=== PATIENT | male | born 1995 | race Two or more races ===

== ENCOUNTER 2020-10-04 10:06 | Emergency (ER) | payer OTHER ==
[~2020-10-04] VITALS: Ht 172.7 cm; Wt 93.0 kg
[2020-10-04 11:23] VITALS: BP 109/64
--- NOTE | 2020-10-04 11:26 | NUR ---
ED Nurse Note:pt. came with laceration at work on right thumb, no bleeding
[2020-10-04] MEDS: Lidocaine 1% Plain 30 ml INJ ONE ×2 (11:56→11:58)
[2020-10-04] MEDS ORDERED: Tetanus/Diptheria/Pertussis IM ONE (12:15)
--- NOTE | 2020-10-04 12:16 | Emergency Room Report ---
History of Present Illness General Chief Complaint: Laceration Source: Patient Present Illness HPI 24-year-old male presents to the emergency department complaining of 3 out of 10 severity pain, tenderness and open wound to the distal aspect of the right thumb which occurred approximately 1 to 2 hours prior to arrival. Patient reports that he was at work and he was using a razor blade to cut a piece of plastic off of a bumper when he accidentally cut his own finger as well. Patient reports bleeding initially. Patient states he cleaned it in the sink at work and it made him lightheaded. Patient states he is not up-to-date with tetanus. He reports he did not eat breakfast this morning. Denies chest pain or palpitations. He denies hitting his head. Patient denies taking blood thinning medications. He reports he is [right]-hand dominant. Allergies: Coded Allergies: No Known Allergies (Unverified , 10/04/20) COVID-19 Screening Contact w/high risk pt: No Experienced COVID-19 symptoms?: No COVID-19 Testing performed TIMBER INSPECTOR: No Patient History Past Medical History: see triage record Past Surgical History: none Pertinent Family History: none Reviewed Nursing Documentation: PMH: Agreed; PSxH: Agreed Nursing Documentation-PMH Past Medical History: No Stated History Review of Systems All Other Systems: negative except mentioned in HPI Physical Exam Vital Signs Date Time Temp Pulse Resp B/P (MAP) Pulse Ox O2 Delivery O2 Flow Rate FiO2 10/04/20 10:58 98.2 56 16 109/64 (79) 98 Room Air Sp02 EP Interpretation: reviewed, normal General Appearance: no apparent distress, alert, GCS 15, non-toxic Head: normocephalic, atraumatic - no evidence of trauma Eyes: bilateral eye normal inspection, bilateral eye PERRL ENT: hearing grossly normal, normal voice Neck: full range of motion Respiratory: lungs clear, normal breath sounds, speaking full sentences Cardiovascular #1: regular rate, rhythm, normal capillary refill Musculoskeletal: normal range of motion, gait/station normal, non-tender Neurologic: alert, motor strength/tone normal, oriented x3, sensory intact, responsive, speech normal Psychiatric: judgement/insight normal Skin: laceration - Distal thumb laceration approx 1 cm in length. Does not reach the subQ tissues and is not gaping. well approximated. slight nail involvement Does not appear to have cut through the full depth of the nail. Procedures Laceration/Wound Repair Laceration/Wound Repair : Consent: Verbal Wound Location: upper extremity - right thumb Wound's Depth, Shape: superficial Wound Length (cm): 1 Wound Explored: contaminated Irrigated w/ Saline (ccs): 500 Wound Repaired With: Dermabond Layer Closure?: No Sterile Dressing Applied?: No Splint Applied?: Yes Type of Splint Applied: THumb splint Sling Applied?: No Patient Tolerated: Well Complications: None Medical Decision Making PA Attestation Dr. Aragon Is my supervising Physician whom patient management has been discussed with. Diagnostic Impression: Primary Impression: Laceration ER Course 24-year-old male presents to the emergency department complaining of 3 out of 10 severity pain, tenderness and open wound to the distal aspect of the right thumb which occurred approximately 1 to 2 hours prior to arrival. Patient reports that he was at work and he was using a razor blade to cut a piece of plastic off of a bumper when he accidentally cut his own finger as well. Patient reports bleeding initially. Patient states he cleaned it in the sink at work and it made him lightheaded. Patient states he is not up-to-date with tetanus. He reports he did not eat breakfast this morning. Denies chest pain or palpitations. He denies hitting his head. Patient denies taking blood thinning medications. He reports he is [right]-hand dominant. Ddx considered but are not limited to laceration, tendon injury, cellulitis, amputation Vital signs: are WNL, pt. is afebrile H&PE are most consistent with: Distal thumb laceration approx 1 cm in length. Does not reach the subQ tissues and is not gaping. well approximated. slight nail involvement Does not appear to have cut through the full depth of the nail. ORDERS: none required at this time, the diagnosis is clinical ED INTERVENTIONS: -Tetanus vaccine was administered as pt. vaccination status was unknown. - The wound was copiously irrigated with normal saline, and explored for foreign body for which no FB was found. - The wound was approximated and closed using Dermabond . 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 Regardless of our best efforts there will be scarring after laceration repair. The extent of scarring is unknown at this time. DISCHARGE: At this time pt. is stable for d/c to home. Will provide printed patient care instructions, and any necessary prescriptions. Care plan and follow up instructions have been discussed with the patient prior to discharge. Other X-Ray Diagnostic Results Other X-Ray Diagnostic Results : X-Ray ordered: Right fingers # of Views/Limited Vs Complete: 3 View Indication: Pain EP Interpretation: Yes PA Xray: Interpretation reviewed, by supervising MD, and agrees with findings. Interpretation: no dislocation, no soft tissue swelling, no fractures Impression: No acute disease Electronically Signed by: Chery Florez PA-C Last Vital Signs Date Time Temp Pulse Resp B/P (MAP) Pulse Ox O2 Delivery O2 Flow Rate FiO2 10/04/20 11:23 98.2 74 16 109/64 98 Room Air Status: improved Disposition: HOME, SELF-CARE Condition: Stable Scripts Acetaminophen* (TYLENOL EXTRA STRENGTH*) 500 Mg Tablet 500 MG ORAL Q6H, #20 TAB 0 Refills Prov: Chery Florez 10/04/20 Cephalexin* (KEFLEX*) 500 Mg Capsule 500 MG ORAL EVERY 12 HOURS for 7 Days, #14 CAP 0 Refills Prov: Chery Florez 10/04/20 Patient Instructions: Nonsutured Laceration Care Additional Instructions: Take medications as directed. Follow up with a Primary Care Provider and your Employer in 3-5 days, even if your symptoms have resolved. Return sooner to ED if new symptoms occur, or current symptoms become worse. - Please note that this Emergency Department Report was dictated using [employer] captain technology software, occasionally this can lead to erroneous entry secondary to interpretation by the dictation equipment. Chery Florez Oct 04, 2020 12:16
[2020-10-04] MEDS ORDERED: CEPHALEXIN500 MG ORAL (12:24)
[2020-10-04] MEDS ORDERED: TYLENOL EXTRA500 MG ORAL (12:24)
[2020-10-04 12:55] VITALS: BP 109/64
--- NOTE | 2020-10-04 12:55 | NUR ---
ED Nurse Note: Pt cleared by health care Provider for discharge. DC instructions/prescription was given and explained to pt and verbalized understanding of teachings. All medical deviecs such as ID band removed. Pt is AAO x4, ambulatory and left with all personal belongings.
--- NOTE | 2020-10-04 16:47 | Diagnostic Imaging Report ---
Indication: Pain, trauma Technique: 3 views of the right thumb Comparison: none Findings: No acute fracture. No dislocation. The joint spaces are preserved Impression: Negative
== END 2020-10-04 13:00 | disposition home or self-care (01) ==
LOC: EMR 12:45
DX: S61.011A Laceration without foreign body of right thumb without damage to nail, initial encounter (principal); W45.8XXA Other foreign body or object entering through skin, initial encounter; Y93.89 Activity, other specified; Y92.9 Unspecified place or not applicable
CPT/HCPCS: 90471; 90715; 99283